=== PATIENT | female | born 1970 | race Caucasian/White ===

== ENCOUNTER 2016-05-23 10:37 | Emergency (ER) | payer SELFPAY ==
[2016-05-24] MEDS ORDERED: ATIVAN2 MG PO (11:49)
[2016-05-24] MEDS ORDERED: IBUPROFEN800 MG PO (11:49)
[2016-05-24] MEDS ORDERED: ZANAFLEX4 MG PO (11:50)
[2016-05-24 12:14] VITALS: BMI 34.4
== END 2016-05-23 12:56 | disposition home or self-care (01) ==
LOC: D.ER 10:37
DX: K59.00 Constipation, unspecified (principal); F41.0 Panic disorder [episodic paroxysmal anxiety]; F43.10 Post-traumatic stress disorder, unspecified

== ENCOUNTER 2016-05-24 09:32 | Outpatient (CLI) | payer SELFPAY ==
[~2016-05-24] VITALS: Ht 162.6 cm; Wt 90.9 kg
[2016-05-24 10:44] LABS: APPEARANCE HAZY (CLEAR); BILIRUBIN NEGATIVE (NEGATIVE); COLOR DK YELLOW (YELLOW); GLUCOSE NEGATIVE (NEGATIVE); KETONE NEGATIVE (NEGATIVE); LEUKOCYTE ESTERASE NEGATIVE (NEGATIVE); NITRITE NEGATIVE (NEGATIVE); PROTEIN NEGATIVE (NEGATIVE); RED CELLS - URINE 0-5 /hpf (0-5); SPECIFIC GRAVITY 1.015 (1.005-1.020); UROBILINOGEN NORMAL (NORMAL); WHITE CELLS - URINE RARE /hpf (0-5)
[2016-05-24 10:45] LABS: BACTERIA FEW /hpf (NONE SEEN); EPITHELIAL CELLS 0-5 /hpf (0-5); MUCUS <1+ /lpf (NONE SEEN)
[2016-05-24 11:00] LABS: BASOPHILS 0.2 % (0.0-2.0); EOSINOPHILS 1.5 % (0-7); HEMATOCRIT 41.9 % (36.0-48.0); HEMOGLOBIN 14.3 g/dL (12-16); IMMATURE GRANULOCYTES 0.3 % (0-5); LYMPHOCYTES 13.3 % (15-50); MCH 30.2 pg (26.0-34.0); MCHC 34.1 g/dL (31.0-37.0); MCV 88.6 fL (80.0-100.0); MEAN PLATELET VOLUME 10.6 fL (7.4-10.4); MONOCYTES 6.8 % (2-11); NEUTROPHILS 77.9 % (40-80); PLATELET COUNT 224 10x3/uL (130-400); RBC 4.73 10x6/uL (4.00-5.40); RDW 12.6 % (11.5-14.5); WBC 12.1 10x3/uL (4.8-10.8)
[2016-05-24 11:16] LABS: ANION GAP 12.9 mmol/L (8-16); BILIRUBIN - TOTAL 0.81 mg/dL (0.2-1.3); CARBON DIOXIDE 26.7 mmol/L (21.0-32.0); CREATININE - SERUM 0.9 mg/dL (0.6-1.3); POTASSIUM - SERUM 3.6 mmol/L (3.5-5.1); PROTEIN - SERUM 7.3 g/dL (6.4-8.2)
--- NOTE | 2016-05-24 11:41 | NUR ---
RECEIVED FROM ER AT THIS TIME VIA WHEELCHAIR. SPOUSE AT BEDSIDE. ASSESSMENT AND HISTORY OBTAINED PER FLOWSHEET. ALERT AND ORIENTED. ORIENTED PT TO ROOM. CALL LIGHT IN REACH, WILL CONTINUE WITH PLAN OF CARE.
[2016-05-24] MEDS ORDERED: ATIVAN2 MG PO (11:49)
[2016-05-24] MEDS ORDERED: IBUPROFEN800 MG PO (11:49)
[2016-05-24] MEDS ORDERED: ZANAFLEX4 MG PO (11:50)
[2016-05-24 12:14] VITALS: Ht 162.6 cm; Wt 90.9 kg
[2016-05-24 12:36] VITALS: BP 100/65
--- NOTE | 2016-05-24 12:50 | NUR ---
750ML OF SOAP SUDS ENEMA ADMINISTERED AT THIS TIME. INSTRUCTED PT TO LIE ON LEFT SIDE WITH RIGHT LEG UP AND TO USE MUSCLES TO HOLD THE FLUID WITHIN HER COLON FOR LONG SHE COULD. PT VERBALIZED UNDERSTANDING. BEDSIDE COMMODE NEAR BED AND CALL LIGHT IN REACH. INSTRUCTED PT NOT TO STRAIN OR FORCE A BOWEL MOVEMENT AND SHE VERBALIZED UNDERSTANDING. TO CALL WHEN SHE FINISHES ON THE BEDSIDE COMMODE. WILL CONTINUE WITH PLAN OF CARE.
--- NOTE | 2016-05-24 13:50 | NUR ---
REMAING 750ML FROM FIRST TAP WATER ENEMA ADMINSTERED AT THIS TIME. REMINDED PT TO WITHOLD FLUID FOR LONG SHE COULD AND SHE VERBALIZED UNDERSTANDING. CALL LIGHT IN REACH, AT BEDSIDE.
--- NOTE | 2016-05-24 14:50 | NUR ---
SECOND SOAP SUDS ENEMA STARTED AT THIS TIME. 500ML INSTILLED INTO THE PT BEFORE SHE FELT IF SHE COULDN'T HOLD ANYMORE. AT BEDSIDE. INSTRUCTED PT TO HOLD FLUID IN LONG SHE COULD AND CALL WHEN SHE WAS FINISHED ON THE BEDSIDE COMMODE. CALL LIGHT IN REACH, WILL CONTINUE WITH PLAN OF CARE.
--- NOTE | 2016-05-24 18:00 | NUR ---
DISCHARGE PAPERWORK REVIEWED WITH PT. LAST ENEMA PERFORMED WITH CLEAR RESULT. IV D/C WITH CATH TIP INTACT. CALL LIGHT IN REACH, WILL CONTINUE WITH PLAN OF CARE.
== END 2016-05-24 18:10 | disposition home or self-care (01) ==
LOC: OBSVTIME → D.ER 09:32 → D.MS 10:40 → D.ER 10:59 → D.MS 10:59 → OBSVTIME 11:00 → EDSTATUS 13:39 → D.MS 18:10 → D.ER 18:10 → D.MS 18:10
PROVIDERS: Emergency Medicine; Nurse Practitioner Acute Care
DX: K59.00 Constipation, unspecified (principal)

== ENCOUNTER → 2018-01-25 13:11 | Outpatient (CLI) | payer BC ==
[2016-05-24 12:14] VITALS: BMI 34.4
[~2018-01-25 13:11] MED LIST: ATIVAN2 MG PO; IBUPROFEN800 MG PO; ZANAFLEX4 MG PO
== END | disposition home or self-care (01) ==
LOC: D.MRI 13:00
DX: M54.5 Low back pain (principal)